=== PATIENT | female | born 1980 ===

== ENCOUNTER 2020-10-03 12:30 | Inpatient (IN) | payer OTHER ==
[~2020-10-03] VITALS: Ht 144.8 cm; Wt 65.8 kg
[2020-10-03] MEDS ORDERED: FUSION PLUS CA1 EACH PO (16:46)
[2020-10-05] MEDS ORDERED: FEROSUL325 MG (14:31)
[2020-10-05] MEDS ORDERED: FOLIC ACID1 MG (14:31)
[2020-10-05] MEDS ORDERED: MEGESTROL ACETA40 MG (14:31)
== END 2020-10-08 12:55 | disposition home or self-care (01) | DRG 833 ==
LOC: OB/GYN 10-05 04:30 → O/R 10-05 04:30 → SURH 10-05 07:00 → OB/GYN 10-05 21:40
PROVIDERS: ADMIT Specialist; ATTEND Specialist
DX: O62.8 Other abnormalities of forces of labor (principal); Z3A.23 23 weeks gestation of pregnancy; Z20.822 Contact with and (suspected) exposure to COVID-19

== ENCOUNTER 2020-10-05 10:11 | Outpatient (CLI) | payer OTHER ==
[~2020-10-05 10:11] MED LIST: FUSION PLUS CA1 EACH PO
[2020-10-05] MEDS ORDERED: MEGESTROL ACETA40 MG (14:31)
[2020-10-05] MEDS ORDERED: FEROSUL325 MG (14:31)
[2020-10-05] MEDS ORDERED: FOLIC ACID1 MG (14:31)
== END 2020-10-05 15:00 | disposition home or self-care (01) ==
LOC: LAB 10:11
PROVIDERS: ATTEND Specialist
DX: Z23 Encounter for immunization (principal); R19.00 Intra-abdominal and pelvic swelling, mass and lump, unspecified site